=== PATIENT | male | born 1970 | race Caucasian/White ===

== ENCOUNTER 2017-09-24 17:14 | Emergency (ER) | payer MEDICAID ==
[2017-09-24 17:35] VITALS: BP 124/94
--- NOTE | 2017-09-24 18:38 | EDM.PDOC ---
Scribed by Linda Jerome 09/24/17 2307 for Mckinley Ross MD ED HPI GENERAL MEDICAL PROBLEM - General Chief Complaint: ENT Problem Stated Complaint: TOOTHACHE [id number] Time Seen by Provider: 09/24/17 17:46 Source of Information: Reports: Patient, RN, RN Notes Reviewed History Limitations: Reports: No Limitations - History of Present Illness INITIAL COMMENTS - FREE TEXT/NARRATIVE: Patient presents with dental pain for the past several days much worse today with onset of swelling in the left upper molar gums. Denies any fever, chills or drainage from the affected tooth. Onset: Gradual Duration: Constant, Getting Worse Location: Reports: Other (tooth) Quality: Reports: Ache Severity: Severe Improves with: Reports: Other (Tylenol and ibuprofen did not help.) Worsens with: Reports: None Associated Symptoms: Reports: No Other Symptoms Left Upper Gums Pain Score (Numeric/FACES): 9 - Related Data Allergies Allergy/AdvReac Type Severity Reaction Status Date / Time No Known Allergies Allergy Verified 09/24/17 17:36 Home Meds: Home Meds . [No Known Home Meds] 03/09/16 [History] Past Medical History - Past Health History Medical/Surgical History: Denies Medical/Surgical History Social & Family History - Family History Family Medical History: Noncontributory - Tobacco Use Smoking Status *Q: Current Every Day Smoker Years of Tobacco use: 32 Packs/Tins Daily: 1 Second Hand Smoke Exposure: Yes - Recreational Drug Use Recreational Drug Use: No - Living Situation & Occupation Living situation: Reports: Single, with Family ED ROS ENT - Review of Systems Review Of Systems: ROS reveals no pertinent complaints other than HPI. ED EXAM, ENT - Physical Exam Exam: See Below Exam Limited By: No Limitations General Appearance: Alert, WD/WN, No Apparent Distress Eye Exam: Bilateral Eye: Normal Inspection Ears: Normal External Exam, Normal Canal, Hearing Grossly Normal, Normal TMs Nose: Normal Inspection, Normal Mucousa, No Blood Mouth/Throat: Other (dental caries of the left maxillary molars with gum tenderness and swelling,nonfluctuant. No drainage. No associated face swelling or erythema.) Head: Atraumatic, Normocephalic Neck: Normal Inspection, Supple, Non-Tender, Full Range of Motion Neurological: Alert, Oriented, No Motor/Sensory Deficits Course - Vital Signs Last Recorded V/S: Last Vital Signs Temp 37.4 C 09/24/17 17:32 Pulse 78 09/24/17 17:32 Resp 18 09/24/17 17:32 BP 124/94 H 09/24/17 17:32 Pulse Ox 100 09/24/17 17:32 - Re-Assessments/Exams Free Text/Narrative Re-Assessment/Exam: 09/24/17 18:35 Posterior maxillary molar regional block with Marcaine 0.5% 2ml. No complications. Patient reports pain free after block. Departure - Departure Time of Disposition: 18:10 Disposition: Home, Self-Care 01 Condition: Good Clinical Impression: Dental abscess, Dental caries - Discharge Information Instructions: Dental Abscess, [id number], Dental Caries, [id number] Forms: ED Department Discharge Additional Instructions: RX: Amoxicillin 500mg. RX: Flagyl 500mg. RX: Viscous lidocaine 2%. RX: Tylenol #3.(*do not drive while under the influence of this medication). Follow up with dentist at first available appointment. I have read and agree with the documentation that has been completed regarding this visit. By signing this record, I attest that the documentation was completed in my physical presence and is an accurate record of the encounter.
== END 2017-09-24 18:26 | disposition home or self-care (01) ==
LOC: DL.ED 17:14
DX: K04.7 Periapical abscess without sinus (principal); K02.9 Dental caries, unspecified; F17.210 Nicotine dependence, cigarettes, uncomplicated
CPT/HCPCS: 99282

== ENCOUNTER 2021-10-23 11:30 | Emergency (ER) | payer MEDICAID, OTHER ==
[2021-10-23 11:44] VITALS: BP 128/105; PULSE 60
[2021-10-23] MEDS ORDERED: ALPRAZolam 0.5 MG Tab PO ONE (11:49)
== END 2021-10-23 12:00 | disposition home or self-care (01) ==
LOC: DL.ED 11:30
DX: F41.9 Anxiety disorder, unspecified (principal); K02.9 Dental caries, unspecified; Z88.5 Allergy status to narcotic agent
CPT/HCPCS: 99283; A9270-GY

== ENCOUNTER 2022-01-21 11:19 | Emergency (ER) | payer MEDICAID ==
[2022-01-21 12:30] VITALS: BP 152/93; PULSE 105
== END 2022-01-21 13:01 | disposition left against medical advice (07) ==
LOC: DL.ED 11:19
DX: K08.89 Other specified disorders of teeth and supporting structures (principal); J44.9 Chronic obstructive pulmonary disease, unspecified; F17.210 Nicotine dependence, cigarettes, uncomplicated; Z88.5 Allergy status to narcotic agent; Z79.899 Other long term (current) drug therapy
CPT/HCPCS: 99282

== ENCOUNTER 2022-03-26 13:29 | Emergency (ER) | payer MEDICAID ==
[2022-03-26 15:35] VITALS: BP 134/89; PULSE 93
== END 2022-03-26 18:15 | disposition left against medical advice (07) ==
LOC: DL.ED 13:29
DX: Z53.21 Procedure and treatment not carried out due to patient leaving prior to being seen by health care provider (principal)

== ENCOUNTER 2022-03-26 18:25 | Emergency (ER) | payer MEDICAID ==
[2022-03-26 19:28] VITALS: BP 151/110; PULSE 90
== END 2022-03-26 20:22 | disposition left against medical advice (07) ==
LOC: DL.ED 18:25
DX: Z53.21 Procedure and treatment not carried out due to patient leaving prior to being seen by health care provider (principal)

== ENCOUNTER 2022-05-18 11:44 | Emergency (ER) | payer MEDICAID ==
[2022-05-18] MEDS ORDERED: Lidocaine 2% Viscous Solution 15 ML UD PO ONE (15:28)
[2022-05-18] MEDS ORDERED: Clindamycin HCl 150 MG Cap PO ONE (15:28)
== END 2022-05-18 15:34 | disposition home or self-care (01) ==
LOC: DL.ED 11:44
DX: S02.5XXA Fracture of tooth (traumatic), initial encounter for closed fracture (principal); W22.8XXA Striking against or struck by other objects, initial encounter
CPT/HCPCS: 99282; A9270; 99283